=== PATIENT | male | born 1960 | race Asian ===

== ENCOUNTER 2017-04-19 15:11 | Emergency (ER) | END 2017-04-19 17:34 | disposition home or self-care (01) ==

== ENCOUNTER 2018-10-16 08:07 | Day surgery (SDC) | payer OTHER ==
[~2018-10-16] VITALS: Ht 165.1 cm; Wt 72.9 kg
[~2018-10-16 08:07] MED LIST: ALBU8.5H8 INH; ASPIRIN; ATOR10TA65 PO; GLIPIZIDE; JANUVIA; LOSA25TA12 PO; METF500T24 PO; PRED20TA PO
[2018-10-16 09:34] VITALS: Ht 165.1 cm; Wt 72.9 kg
[2018-10-16 09:36] VITALS: BP 121/76; PULSE 75; RESP 18
[2018-10-16] MEDS ORDERED: FENTAnyl 50 MCG/ML VIAL ONE (10:32)
[2018-10-16] MEDS ORDERED: MIDAZOLAM 1 MG/ML 2 ML INJ ONE ×2 (10:32)
[2018-10-16 10:40] VITALS: BP 132/84; RESP 15
== END 2018-10-16 12:58 | disposition home or self-care (01) ==
LOC: GIL 08:07
PROVIDERS: ATTEND Internal Medicine Gastroenterology
DX: Z12.11 Encounter for screening for malignant neoplasm of colon (principal); D12.4 Benign neoplasm of descending colon; D12.8 Benign neoplasm of rectum; E11.9 Type 2 diabetes mellitus without complications
CPT/HCPCS: 45380; 82962; 88305; J2250; J3010; Z7610

== ENCOUNTER 2018-11-16 21:12 | Emergency (ER) | payer OTHER ==
[~2018-11-16] VITALS: Ht 167.6 cm; Wt 74.2 kg
[~2018-11-16 21:12] MED LIST changes: +ACET500C5 PO; -ALBU8.5H8 INH; -LOSA25TA12 PO; -PRED20TA PO
[2018-11-16 21:15] VITALS: Ht 167.6 cm; Wt 74.2 kg
[2018-11-16 23:50] VITALS: BP 156/84; PULSE 70; RESP 16
== END 2018-11-16 23:55 | disposition home or self-care (01) ==
LOC: FTE 21:12
DX: S09.90XA Unspecified injury of head, initial encounter (principal); F17.210 Nicotine dependence, cigarettes, uncomplicated; E11.9 Type 2 diabetes mellitus without complications; W22.8XXA Striking against or struck by other objects, initial encounter; Y92.9 Unspecified place or not applicable; Z79.82 Long term (current) use of aspirin; Z79.84 Long term (current) use of oral hypoglycemic drugs
CPT/HCPCS: 99283